=== PATIENT | female | born 1985 | race Two or more races ===

== ENCOUNTER 2017-11-19 16:44 | Emergency (ER) | payer OTHER ==
[~2017-11-19] VITALS: Ht 162.6 cm; Wt 127.0 kg
[2017-11-19 17:29] LABS: MEAN CORPUSCULAR HEMOGLOBIN 30.2 pg (27.0-34.8); MEAN CORPUSCULAR VOLUME 88.9 fL (80-100); PLATELET COUNT 342 x10^3/uL (130-400); RED BLOOD COUNT 5.05 x10^6/uL (3.82-5.3); RED CELL DISTRIBUTION WIDTH 12.6 % (9.6-15.2)
[2017-11-19] MEDS ORDERED: LIDOCAINE-MPF 1%, 5ML INFIL ONE (17:30)
[2017-11-19 17:38] LABS: ALANINE AMINOTRANSFERASE 28 U/L (12-78); ALBUMIN 3.1 g/dL (3.4-5.0); ANION GAP 11 mmol/L (5-15); CALCIUM 8.8 mg/dL (8.5-10.1); CHLORIDE 100 mmol/L (98-107)
[2017-11-19 17:43] LABS: ALKALINE PHOSPHATASE 149 U/L (45-117); BILIRUBIN,TOTAL 0.5 mg/dL (0.2-1.0); CREATININE 0.84 mg/dL (0.55-1.02); TOTAL PROTEIN 8.5 g/dL (6.4-8.2)
[2017-11-19] MEDS ORDERED: INSU100V8 SQ (17:43)
[2017-11-19] MEDS ORDERED: METF100P3 PO (17:43)
[2017-11-19] MEDS ORDERED: INSU500I IM (17:43)
[2017-11-19 18:00] LABS: MD YES
[2017-11-19 18:01] LABS: SEG#(MANUAL) 17.63 x10^3/uL (1.8-6.8); SEGS% (MANUAL) 75 % (42-75)
[2017-11-19 18:03] LABS: BAND#(MANUAL) 0.24 x10^3/uL; BANDS%(MANUAL) 1 % (0-7); MONOS#(MANUAL) 1.41 x10^3/uL (0.3-2.7); MONOS% (MANUAL) 6 % (2-9)
[2017-11-19 18:04] LABS: <RBC MORPHOLOGY> NORMAL
[2017-11-19 18:05] LABS: LYMPH#(MANUAL) 3.53 x10^3/uL (1-3.4); LYMPHS% (MANUAL) 15 % (22-44); REACTIVE LYMPHS # (MANUAL) 0.71 x10^3/uL (0-0); REACTIVE LYMPHS % (MANUAL) 3 % (0-0)
[2017-11-19 18:06] LABS: <PLATELET ESTIMATE> ADEQUATE
[2017-11-19 18:07] LABS: <PLT MORPHOLOGY> NORMAL PLT MORPH
[2017-11-19] MEDS ORDERED: CEFTRIAXONE 1,000 MG IM ONE (20:00)
[2017-11-19] MEDS ORDERED: CEFTRIAXONE 1,000 MG ONE (20:49)
[2017-11-19] MEDS ORDERED: LIDOCAINE-MPF 2%, 2ML ONE (20:54)
[2017-11-19 21:02] VITALS: BP 134/81
[2017-11-19 21:05] LABS: MICROSCOPIC AUTO
[2017-11-19 21:07] LABS: CULTURE INDICATED? NO
== END 2017-11-19 21:09 | disposition home or self-care (01) ==
LOC: ED 21:03
DX: L03.114 Cellulitis of left upper limb (principal); E11.9 Type 2 diabetes mellitus without complications; R11.0 Nausea
CPT/HCPCS: 36415; 76882; 80053; 81001; 84703; 85025; 96372; 99285; J0696